=== PATIENT | male | born 1975 | race African-American/Black ===

== ENCOUNTER 2018-12-15 10:28 | Emergency (ER) | payer OTHER ==
[2018-12-15 12:26] LABS: Basophils # (Auto) 0.1 K/mm3 (0.0-0.1); Basophils % (Auto) 1.1 % (0.0-1.8); Eosinophils # (Auto) 0.1 K/mm3 (0.0-0.4); Eosinophils % (Auto) 2.7 % (0.0-4.3); Hematocrit 42.5 % (35.5-45.6); Hemoglobin 14.5 gm/dl (11.8-15.2); Lymphocytes # (Auto) 1.5 K/mm3 (1.2-5.4); Lymphocytes % (Auto) 32.7 % (13.4-35.0); Mean Corpuscular HGB Conc 34 % (32-34); Mean Corpuscular Volume 90 fl (84-94); Monocytes # (Auto) 0.4 K/mm3 (0.0-0.8); Platelet Count 201 K/mm3 (140-440); Red Blood Count 4.75 M/mm3 (3.65-5.03); Red Cell Distribution Width 13.3 % (13.2-15.2)
[2018-12-15 12:36] LABS: BUN/Creatinine Ratio 16; Blood Urea Nitrogen 11 mg/dL (9-20); Calcium 8.9 mg/dL (8.4-10.2); Hemolysis Index 3
[2018-12-15 12:39] LABS: Amphetamine Screen,Urine PRESUMPTIVE NEGATIVE; Benzodiazepines Screen,Urine PRESUMPTIVE NEGATIVE; Cannabinoid Screen,Urine PRESUMPTIVE NEGATIVE; Cocaine Screen,Urine PRESUMPTIVE NEGATIVE; Methadone Screen,Urine PRESUMPTIVE NEGATIVE; Opiate Screen,Urine PRESUMPTIVE NEGATIVE
[2018-12-15 12:46] LABS: Free T4 (Free Thyroxine) 1.03 ng/dL (0.76-1.46)
--- NOTE | 2018-12-15 14:22 | Emergency Department Report ---
ED General Adult HPI - General Chief complaint: Arrhythmia/Palpitations Stated complaint: ABNORMAL HEARTBEAT Time Seen by Provider: 12/15/18 11:31 Source: patient Mode of arrival: Ambulatory Limitations: No Limitations - History of Present Illness Severity scale (0 -10): 1 - Related Data Allergies Allergy/AdvReac Type Severity Reaction Status Date / Time No Known Allergies Allergy Unverified 12/15/18 10:30 ED Review of Systems ROS: Stated complaint: ABNORMAL HEARTBEAT Other details as noted in HPI ED Past Medical Hx - Past Medical History Previous Medical History?: No - Surgical History Past Surgical History?: No - Social History Smoking Status: Current Some Day Smoker Substance Use Type: Alcohol ED Physical Exam - General Limitations: No Limitations ED Course Vital Signs 12/15/18 12/15/18 12/15/18 11:14 11:26 11:30 Temperature 98.3 F 98.6 F Pulse Rate 53 L 56 L Respiratory 18 18 Rate Blood Pressure 136/85 Blood Pressure 134/95 [Right] O2 Sat by Pulse 97 100 100 Oximetry 12/15/18 12/15/18 12/15/18 11:31 11:45 12:00 Temperature Pulse Rate 52 L 56 L 58 L Respiratory 17 14 17 Rate Blood Pressure 134/95 134/95 123/81 Blood Pressure [Right] O2 Sat by Pulse 98 99 97 Oximetry 12/15/18 12/15/18 12/15/18 12:15 12:31 12:45 Temperature Pulse Rate 55 L 55 L 57 L Respiratory 12 16 16 Rate Blood Pressure 123/81 123/81 123/81 Blood Pressure [Right] O2 Sat by Pulse 98 97 99 Oximetry 12/15/18 13:00 Temperature Pulse Rate 52 L Respiratory 11 L Rate Blood Pressure 115/80 Blood Pressure [Right] O2 Sat by Pulse 97 Oximetry ED Medical Decision Making - Lab Data Result diagrams: 12/15/18 11:52 12/15/18 11:52 Laboratory Results - last 24 hr 12/15/18 12/15/18 12/15/18 11:52 11:52 11:52 WBC 4.7 RBC 4.75 Hgb 14.5 Hct 42.5 MCV 90 MCH 31 MCHC 34 RDW 13.3 Plt Count 201 Lymph % (Auto) 32.7 Ramsey % (Auto) 8.0 H Eos % (Auto) 2.7 Baso % (Auto) 1.1 Lymph # 1.5 Ramsey # 0.4 Eos # 0.1 Baso # 0.1 Seg Neutrophils % 55.5 Seg Neutrophils # 2.6 Sodium 138 Potassium 4.1 Chloride 101.6 Carbon Dioxide 24 Anion Gap 17 BUN 11 Creatinine 0.7 L Estimated GFR > 60 BUN/Creatinine Ratio 16 Glucose 99 Calcium 8.9 Magnesium 2.00 TSH 1.610 Free T4 1.03 Urine Opiates Screen Urine Methadone Screen Ur Barbiturates Screen Ur Phencyclidine Scrn Ur Amphetamines Screen U Benzodiazepines Scrn Urine Cocaine Screen U Marijuana (THC) Screen Drugs of Abuse Note 12/15/18 12:21 WBC RBC Hgb Hct MCV MCH MCHC RDW Plt Count Lymph % (Auto) Ramsey % (Auto) Eos % (Auto) Baso % (Auto) Lymph # Ramsey # Eos # Baso # Seg Neutrophils % Seg Neutrophils # Sodium Potassium Chloride Carbon Dioxide Anion Gap BUN Creatinine Estimated GFR BUN/Creatinine Ratio Glucose Calcium Magnesium TSH Free T4 Urine Opiates Screen Presumptive negative Urine Methadone Screen Presumptive negative Ur Barbiturates Screen Presumptive negative Ur Phencyclidine Scrn Presumptive negative Ur Amphetamines Screen Presumptive negative U Benzodiazepines Scrn Presumptive negative Urine Cocaine Screen Presumptive negative U Marijuana (THC) Screen Presumptive negative Drugs of Abuse Note Disclamer Critical care attestation.: If time is entered above; I have spent that time in minutes in the direct care of this critically ill patient, excluding procedure time. ED Disposition Clinical Impression: Palpitations Disposition: [id number] TO HOME OR SELFCARE Is pt being admited?: No Does the pt Need Aspirin: No Condition: Stable Instructions: Palpitations (ED) Additional Instructions: Return to the emergency department any acute change or worsening symptoms. Follow up with photo colorer for further evaluation any persistent problem. Referrals: HANANE GERMAN MD [Primary Care Provider] - 3-5 Days ALEISHAESTELA SCOTT MD [Staff Physician] - 3-5 Days Time of Disposition: 14:21
[2018-12-15 14:41] VITALS: BP 114/77
== END 2018-12-15 14:41 | disposition home or self-care (01) ==
LOC: ED 10:28
DX: R00.2 Palpitations (principal); F17.200 Nicotine dependence, unspecified, uncomplicated
CPT/HCPCS: 36415; 80048; 80307; 83735; 84439; 84443; 85025; 93005; 93010; 99283